=== PATIENT | male | born 1950 | race Caucasian/White ===

== ENCOUNTER 2016-07-12 07:52 | Day surgery (SDC) | payer MEDICARE, BC ==
[~2016-07-12 07:52] MED LIST: RINGERS SOLUTION,LACTATED 1,000 ML IV PRN; ceFAZolin SODIUM 1 GM VIAL IV PRN
--- OUTSIDE RECORDS SUMMARY | 2016-07-12 07:55 | XMS REPORT | CCD ---
:1950 Author Name DAYANARA MAY Address [address] [facility] [place] [address] Care Team Providers Name Role Phone JUDIT BRANCH Attending Physician Unavailable Allergies Allergy Code Allergy Type Reaction Status No Known Drug Allergies 0 Drug allergy Active Active Medications Medication Code Dose Units Frequency Route Modification Start Date/Time Lomotil 2497227 1 EACH As needed ORAL 09/10/2012 09:36 0.025MG-2.5MG Oral Tablet Prescription Detail TAKE 1 EACH ORAL As needed LORTAB 0 As needed 09/10/2012 09:36 Prescription Detail As needed MUSCLE RELAXOR 0 Every 8 hr as needed 09/10/2012 09:36 Prescription Detail Every 8 hr as needed Ziac 2.5MG-6.25MG Oral Tablet [id number] 1 EACH Daily ORAL 09/10/2012 09:36 Prescription Detail TAKE 1 EACH ORAL Daily Problems Problem Code Start Date Resolved Date Status ARTHROPATHY 977434727 09/10/2012 Active ESSENTIAL HYPERTENSION 78631242 Active TYPE II DIABETES MELLITUS 71298593 Active Procedures Procedure Code Procedure Type Date CHEST [id number] 04/11/2016 Results Unknown or Not Available. Encounters Encounter Diagnosis Diagnosis Code Start Date Chronic obstructive pulmonary disease, unspecified J449 04/11/2016 Function Status Unknown or Not Available. History of Immunizations Unknown or Not Available. Plan of Treatment Unknown or Not Available. Social History Smoking Status Code Start Date End Date Never smoker [id number] Vital Signs Unknown or Not Available. Function Status Unknown or Not Available. Goals Unknown or Not Available. ASSESSMENTS Unknown or Not Available. Health Concerns Section Unknown or Not Available.
[2016-07-12] MEDS ORDERED: RINGERS SOLUTION,LACTATED 1,000 ML IV ONE (08:20)
[2016-07-12] MEDS ORDERED: ceFAZolin SODIUM 1 GM VIAL IV ONE (08:40)
[2016-07-12] MEDS ORDERED: BUPIVACAINE HCL 50 ML VIAL IJ ONE (09:00)
--- NOTE | 2016-07-12 09:11 | OR ---
Operative Report - Dictated Report Narrative: Date: 07/12/2016 Physician: George Pascual M.D. Air Grinder: Wero Watts PA-C Preoperative diagnosis: Right index Trigger finger Postoperative diagnosis: Right index Trigger finger Procedure: Right index finger A1 bhavin release Anesthesia: MAC Plus local Complications: None Estimated blood loss: Minimal Tourniquet time: 7 Minutes at 250 mmHg Specimens: None Retained implants: None Drains: None Indications: Jamari Is a 66 year-old male who has been followed in my clinic with complaints of trigger finger. Physical exam as demonstrated triggering of the finger. Conservative measures have failed including but not limited to passage of time, activity modification, medications, and injections. The risks, benefits, and alternatives were discussed in clinic. The risks being bleeding, infection, nerve, tendon, blood vessel injury, persistent pain, wound competitions, need for additional procedures, and persistent symptoms. Consent was obtained in the clinic. Procedure: After marking the correct extremity in the preoperative holding area, a timeout was performed in the operating room. IV antibiotics consisting of 2 g of Ancef were administered prior to the procedure. A well-padded, nonsterile tourniquet was applied to the operative upper arm. The right upper extremity was then prepped and draped in the usual sterile fashion. The arm was exsanguinated and the tourniquet was inflated to 250 mmHg. 0.5% Marcaine without epinephrine was infused into the projected incision site at the palmar flexion crease over the metacarpophalangeal joint in line with the digit. Using loupe magnification, a transverse incision in the appropriate palmar flexion crease in line with the digit. Blunt dissection was carried down through the subcutaneous tissues using bipolar cautery for hemostasis. Care was taken to protect the digital nerves. Staying midline along the flexor tendon, the A1 bhavin was identified. A sarah was made in the proximal edge of the A1 bhavin with a 15 blade scalpel and tenotomy scissors were utilized in order to completely transect the A1 bhavin. Care was to stay midline and avoid transection of the A2 bhavin. Soft tissues overlying the flexor tendon proximal to the A1 bhavin were also released ensuring that there were no other compressive structures contributing to the triggering. The finger was placed through range of motion and demonstrated no additional catching. The tendons were visualized and mobilized out of the wound, and did not demonstrate any gross pathology or masses that required debridement. The tendons were noted to be intact. Once it was felt that we had adequately decompressed the flexor tendons as they passed under the A1 bhavin, the tourniquet was removed. Hemostasis was obtained with pressure and bipolar cautery. There was good return of color and capillary refill to the digit. Additional half percent Marcaine without epinephrine was infused into the skin edges. The wound was thoroughly irrigated. The skin was closed with interrupted 4-0 nylon. Sterile dressings consisting of Xeroform, 4 x 4, and Tariq were applied. All sponge, needle, blade, and instrument counts were correct prior to closing the wounds. The patient was awoken and transferred to the post-anesthesia care unit in stable condition.
[2016-07-12 10:27] VITALS: BP 156/86
== END 2016-07-12 07:53 | disposition home or self-care (01) ==
LOC: AMB 07:52
PROVIDERS: ATTEND Orthopaedic Surgery
PROC: 0LN70ZZ Release Right Hand Tendon, Open Approach (ICD-10-PCS; principal; 2016-07-12 08:35)
DX: M65.321 Trigger finger, right index finger (principal); I10 Essential (primary) hypertension; K21.9 Gastro-esophageal reflux disease without esophagitis; Z68.27 Body mass index [BMI] 27.0-27.9, adult